=== PATIENT | male | born 1960 | race African-American/Black ===

== ENCOUNTER 2018-01-06 07:40 | Outpatient (CLI) | payer OTHER ==
--- NOTE | 2018-01-06 11:47 | PET ---
PET CT FROM SKULL BASE THROUGH MID THIGHS: INDICATION: History of left-sided lung cancer and Stage IV adenocarcinoma of the right lung with liver mets diagn osed in October 2017. RADIOPHARMACEUTICAL: 9.9 mCi F18-FDG IV was utilized. TECHNIQUE: PET CT images were obtained from the skull base through the mid thighs following administration of th e radiopharmaceutical. CT images were obtained for attenuation correction purposes only. Comparison made with prior PET CT dated 05/12/11. FINDINGS: Biodistribution: The biodistribution for the examination appears acceptable. Head/Neck: There is a mild amount of increased metabolic activity involving the parotid and submandibular glands . A mild amount of increased metabolic activity is seen along the right carotid, particularly in the region of the right carotid body, where the peak SUV uptake is 2.6. This is nonspecific but can be se en with atherosclerotic disease of the right carotid body. This may also be related to background act ivity within the blood pool. No hypermetabolic lymphadenopathy or mass is identified. Thorax: Prominent mass-like conglomeration of lymph nodes within the right paratracheal and right superior me diastinal region. The conglomeration of lymph nodes measures 7.5 cm with a peak SUV uptake of 8.22 an d a mean uptake of 7.6. There is a hypermetabolic enlarged subcarinal lymph node measuring 2.7 cm pea k SUV uptake of 8.6 and mean of 7.8. There is a large right perihilar right middle lobe mass measurin g approximately 9.8 cm with a peak SUV uptake of 7.8 and a mean uptake of 6.9. Abdomen/Pelvis: There is a hypermetabolic mass within the lateral left hepatic lobe measuring 3.8 cm with peak SUV up take of 8.0 and a mean uptake of 7.47. There are hypermetabolic portocaval lymph nodes, one measuring 1.5 cm and an additional measuring 2.6 cm. The largest portocaval lymph node has a maximum uptake of 11.5 and a mean uptake of 10.2. No additional hypermetabolic lymphadenopathy or mass is identified w ithin the abdomen or pelvis. Skin/Osseous Structures: No hypermetabolic skin or osseous lesion is evident. IMPRESSION: Abnormal PET CT: 1. There is evidence of either primary or metastatic disease within the right middle lobe. There is a large hypermetabolic right perihilar mass extending into the right middle lobe. There is malignant lymphadenopathy within the mediastinum. There is also malignant lymphadenopathy within the upper abdo men in the portocaval region. There is hypermetabolic metastatic disease to the left hepatic lobe. 2. Mild increased metabolic activity seen within the right carotid may reflect background activity w ithin the blood pool and mild atherosclerotic disease. No hypermetabolic lymphadenopathy is evident w ithin the head/neck region. There is no evidence of hypermetabolic osseous metastatic disease. POS: [facility]
== END 2018-01-06 07:41 | disposition home or self-care (01) ==
LOC: PET 07:40
PROVIDERS: ATTEND Internal Medicine Hematology & Oncology
DX: C34.01 Malignant neoplasm of right main bronchus (principal); C78.7 Secondary malignant neoplasm of liver and intrahepatic bile duct; R59.0 Localized enlarged lymph nodes
CPT/HCPCS: 78815; A9552

== ENCOUNTER 2018-11-03 12:33 | Day surgery (SDC) | payer OTHER ==
[2018-11-03 12:50] VITALS: BP 105/63; TEMP 97.4
[2018-11-03] MEDS: Pembrolizumab 200 MG in Sodium Chloride 0.9% 250 ML 250 ML IV SCH (13:02)
[2018-11-03] MEDS ORDERED: Sodium Chloride 0.9% 20 ML ONE (13:03)
== END 2018-11-03 13:38 | disposition home or self-care (01) ==
LOC: ONC/OP 12:33
PROVIDERS: ATTEND Internal Medicine Hematology & Oncology
DX: Z51.12 Encounter for antineoplastic immunotherapy (principal); C34.01 Malignant neoplasm of right main bronchus; C78.7 Secondary malignant neoplasm of liver and intrahepatic bile duct
CPT/HCPCS: 96413; J7050; J9271

== ENCOUNTER 2019-02-07 12:38 | Inpatient (IN) | payer OTHER ==
--- NOTE | 2019-02-07 13:16 | RAD ---
EXAM: Single view of the chest HISTORY: Hypoxia and dyspnea COMPARISON: 11/14/2018 FINDINGS: Single view of the chest shows a normal sized cardiomediastinal silhouette. Multifocal air space opacities are seen in the mid left lung and right lower lobe. Atherosclerotic calcification are seen in the aorta. The bones are unremarkable. IMPRESSION: Multifocal infiltrates
[2019-02-07 14:39] LABS: #Basophils 0.1 thou/uL (0.0-0.2); #Eosinphils 0.2 thou/uL (0.0-0.7); #Lymphocytes 1.7 thou/uL (1.20-3.40); #Monocytes 0.7 thou/uL (0.11-0.59); %Basophils 1.3 % (0.0-1.0); %Eosinophils 3.2 % (0.0-10.0); %Lymphocytes 30.4 % (21.0-51.0); %Monocytes 12.7 % (0.0-10.0); %Neutrophils 52.4 % (42.0-75.0); Hemoglobin 15.4 g/dL (14.0-18.0); Mean Corpuscular HGB CONC 32.1 g/dL (32.0-36.0); Mean Corpuscular Hemoglobin 31.2 pg (27.0-31.0); Mean Corpuscular Volume 97.1 fL (78.0-98.0); Mean Platelet Volume 8.1 fL (7.4-10.4); Platelet Count 191 thou/uL (130-400); RBC Distribution Width 15.4 % (11.5-14.5); Red Blood Cell (RBC) Count 4.94 mill/uL (4.70-6.10); White Blood Cell (WBC) Count 5.6 thou/uL (4.8-10.8)
[2019-02-07 15:03] LABS: ALT (SGPT) 15 U/L (8-55); AST (SGOT) 26 U/L (5-34); Albumin 3.5 g/dL (3.5-5.0); Alkaline Phosphatase 204 U/L (40-110); Anion Gap 12 mmol/L (10-20); BUN (Urea Nitrogen) 15 mg/dL (8.4-25.7); Bilirubin, Total 0.9 mg/dL (0.2-1.2); Calc. Creatinine Clearance 0 mL/min (70-130); Calcium 8.6 mg/dL (7.8-10.44); Carbon Dioxide 30 mmol/L (22-29); Chloride 104 mmol/L (98-107); Estimated GFR-MDRD 86; Globulin 3.5 g/dL (2.4-3.5); Glucose 75 mg/dL (70-105); Potassium 4.7 mmol/L (3.5-5.1); Sodium 141 mmol/L (136-145)
--- NOTE | 2019-02-07 15:33 | PDOC.FPRHP ---
- History of Present Illness Chief Complaint: hypoxia History of Present Illness: Patient is a 58M with PMHx of lung cancer, Oncologist: David - Allergies/Adverse Reactions Allergies Allergy/AdvReac Type Severity Reaction Status Date / Time No Known Allergies Allergy Unverified 11/03/18 08:31 - History PMHx: PSHx: FHx: Social: - Vital signs BP: 105/78 HR: 78 RR: 20 Tmax: 98.0 Pox: 96% on 4L nc Wt: 61 kg FMR H&P: Results - Labs Result Diagrams: 02/07/19 13:15 02/07/19 13:15 Lab results: WBC 5.6 thou/uL (4.8-10.8) 02/07/19 13:15 Hgb 15.4 g/dL (14.0-18.0) 02/07/19 13:15 Hct 48.0 % (42.0-52.0) 02/07/19 13:15 MCV 97.1 fL (78.0-98.0) 02/07/19 13:15 Plt Count 191 thou/uL (130-400) 02/07/19 13:15 Neutrophils % 52.4 % (42.0-75.0) 02/07/19 13:15 Sodium 141 mmol/L (136-145) 02/07/19 13:15 Potassium 4.7 mmol/L (3.5-5.1) 02/07/19 13:15 Chloride 104 mmol/L (98-107) 02/07/19 13:15 Carbon Dioxide 30 mmol/L (22-29) H 02/07/19 13:15 BUN 15 mg/dL (8.4-25.7) 02/07/19 13:15 Creatinine 1.07 mg/dL (0.7-1.3) 02/07/19 13:15 Glucose 75 mg/dL (70-105) 02/07/19 13:15 Calcium 8.6 mg/dL (7.8-10.44) 02/07/19 13:15 Total Bilirubin 0.9 mg/dL (0.2-1.2) 02/07/19 13:15 AST 26 U/L (5-34) 02/07/19 13:15 ALT 15 U/L (8-55) 02/07/19 13:15 Alkaline Phosphatase 204 U/L (40-110) H 02/07/19 13:15 B-Natriuretic Peptide 2082.0 pg/mL (0-100) H 02/07/19 14:32 Serum Total Protein 7.0 g/dL (6.0-8.3) 02/07/19 13:15 Albumin 3.5 g/dL (3.5-5.0) 02/07/19 13:15 FMR H&P: Upper Level - Plan Date/Time: 02/07/19 1532 Hernán Robbins, have evaluated this patient and agree with findings/plan as outlined by strategy intern resident. Pertinent changes/additions are listed here. This is a 58 yo male with a pmh significant for stage IV lung cancer Code: Prophylaxis: Family: Fluids: Diet Disposition: PCP: Dr. Adair
[2019-02-07] MEDS ORDERED: Aspirin Chewable 81 MG TAB ONE (15:35)
[2019-02-07] MEDS ORDERED: Furosemide 40 MG/4 ML VIAL ONE (15:35)
[2019-02-07] MEDS ORDERED: Ondansetron PF 4 MG/2 ML Vial IVP PRN (16:46)
[2019-02-07] MEDS ORDERED: Acetaminophen 325 MG TAB PO PRN (16:46)
[2019-02-07] MEDS ORDERED: Ondansetron ODT 4 MG TAB SL PRN (16:46)
[2019-02-07 18:10] LABS: Troponin I Less than 0.010 ng/mL (< 0.028)
[2019-02-07 19:07] LABS: Actual Bicarbonate (HCO3a) 30.3 mEq/L (22-28); Base Excess (BEa) 3.5 mEq/L (-2.0 to +3.0); CO2 Tension 54.9 mmHg (35.0-45.0); Calcium, Ionized 1.14 mmol/L (1.12-1.30); Carboxyhemoglobin (COHb) 2.7 gm% (0.0-3.0); Hemoglobin (Hb) 14.8 g/dL (14.0-18.0); Potassium - ABG Lab 3.76 mmol/L (3.70-5.30); pH, Arterial 7.36 (7.35-7.45)
[2019-02-07 19:09] LABS: O2 Tension (PaO2) 58.4 mmHg (80.0-100.0); Puncture Site LRA
[2019-02-07 19:10] LABS: ALV-art Gradient 101.135 (0-20)
[2019-02-07] MEDS: Furosemide 40 MG/4 ML VIAL SLOW IVP SCH (20:13)
[2019-02-08 05:41] LABS: Anion Gap 12 mmol/L (10-20); BUN (Urea Nitrogen) 17 mg/dL (8.4-25.7); Calc. Creatinine Clearance 65 mL/min (70-130); Calcium 8.9 mg/dL (7.8-10.44); Carbon Dioxide 33 mmol/L (22-29); Chloride 103 mmol/L (98-107); Estimated GFR-MDRD Greater than 90; Glucose 80 mg/dL (70-105); Potassium 4.2 mmol/L (3.5-5.1); Sodium 144 mmol/L (136-145)
[2019-02-08] MEDS: Furosemide 40 MG/4 ML VIAL SLOW IVP SCH ×3 (06:45→21:03)
--- NOTE | 2019-02-08 08:13 | HP ---
PRIMARY CARE PHYSICIAN: Dr. Adair. ONCOLOGIST: Dr. Hernandez. CHIEF COMPLAINT: Referral to ED from primary care physician's office for worsening shortness of breath and lower extremity edema times weeks. HISTORY OF PRESENT ILLNESS: This is a 58-year-old male with past medical history of lung cancer with prior chemotherapy and most recent radiation therapy 2 months ago with last PET scan 1 week ago unclear results; chronic hypoxic respiratory failure, recently setup for home oxygen 2 to 3 L approximately 2 to 3 weeks ago; prior AK without stenting; lower extremity stenting on DAPT; ongoing nicotine dependence, who presented to primary care physician's office for a 3-week history of worsening lower extremity edema, progressing into abdomen, associated with orthopnea and diminished functional status and recently setup for oxygen at home 2 to 3 L without any significant improvement, prompting primary care physician to call the patient's oncologist and seek ER evaluation. The patient denies any anginal complaints. He notes seeing his primary care physician several weeks ago with shortness of breath and being setup for oxygen. He has felt better with oxygen; however, notes worsening peripheral edema symptoms. He denies any recent sick contacts or illnesses. He states he had a recent PET scan done approximately 1 week ago and was told that his findings were good, but formal results are not available. In the emergency room, the patient had required 4 L of oxygen for appropriate saturation. He reports 10- to 12-pound weight gain recently. A 1-view chest x-ray revealed multifocal infiltrates in mid left lung and right lower lobe. The patient has no history of partial lobectomy. Laboratory values revealed a BNP of 2082. Most recent, January 17, 2019, transthoracic echocardiogram noted preserved LVEF with 60% to 65% with paradoxical septal movement, consistent with a right heart overload. The patient's EKG did not suggest any ischemic changes. He was administered 325 mg of oral aspirin and 40 mg IV Lasix, admitted for inpatient evaluation. At bedside, the patient notes minimal urine output thus far. He offers no other acute complaints. He corroborates aforementioned history. He denies any known history of congestive heart failure. He has previously seen a concrete mixer operator, but does not remember the concrete mixer operator's name. PAST MEDICAL HISTORY: Lung cancer diagnosed approximately 10 to 12 years ago regarding partial lobectomy, prior chemotherapy, and 8 cycles of radiation therapy, most recently 2 months ago with most recent PET scan 1 week ago, followed by oncologist Dr. Hernandez; nicotine dependence 1 pack every 3 days; chronic hypoxic respiratory failure, recently setup with home oxygen 2 to 3 L; AK; peripheral arterial stenting. PAST SURGICAL HISTORY: Partial lobectomy, chemo and radiation therapy for lung cancer, and lower extremity stenting. SOCIAL HISTORY: The patient admits to ongoing nicotine dependence, smoking 1 pack every 3 days. He denies any alcohol or illicit drug use. ALLERGIES: NONE REPORTED. REVIEW OF SYSTEMS: Pertinent positives per HPI. Remainder of review of systems otherwise negative. HOME MEDICATIONS: It will be reviewed as per admission medication reconciliation. FAMILY HISTORY: The patient notes mother and sister with congestive heart failure and his father had throat cancer. PHYSICAL EXAMINATION: VITAL SIGNS: In the ER, temperature 97.7, pulse 78, blood pressure 108/69, oxygen saturation 96% on 4 L oxygen via cannula, and respirations 16 to 20. GENERAL APPEARANCE: This is an elderly thin male, who is awake, alert, oriented , conversant, and little bit tachypneic. EYES: Pupils are equally round and reactive. Extraocular muscles are intact. No scleral icterus or conjunctival pallor. HENT: Normocephalic and atraumatic. There is frontal temporal wasting noted. Mucous membranes are moist. NECK: Supple. CARDIOVASCULAR SYSTEM: S1 and S2, regular rate and rhythm. There is audible heart murmur, JVD noted. LUNGS: Labored respirations noted, bilateral equal air entry posterior auscultation, scattered rhonchi and coarse breath sounds noted throughout bilateral posterior lung gonzalez. ABDOMEN: Soft, nontender, and nondistended. no peritoneal signs. EXTREMITIES: There is 3+ lower extremity pitting edema. No deformity or cyanosis noted. SKIN: Warm to touch without appreciable rashes or abrasion. GENITOURINARY: There is no scrotal edema appreciated. LABORATORY DATA: WBC 5.6, H&H 15 and 48. Sodium 141, potassium 4.7, chloride 104, bicarb 30, glucose 75, BUN and creatinine 15/1.07. AST 26, ALT 15, alk phos 204, albumin 3.5. Troponin I negative x2. IMAGIN-view chest x-ray on 02/07/2019 reveals multifocal infiltrates seen in the mid left lung and right lower lobe. Transthoracic echocardiogram in December 2018 reveals LVEF 60% to 65% with paradoxical septal movement with right heart overload. ASSESSMENT AND PLAN: 1. Acute on chronic hypoxic respiratory failure. Likely multifactorial etiology including congestive heart failure exacerbation and possibly attributed to lung cancer. The patient will be admitted to inpatient status and placed on telemetry monitoring. We will obtain arterial blood gas to evaluate for extent of hypoxemia and for any gradient. We will continue IV loop diuresis. We will obtain outpatient PET-CT scan results to evaluate for extent of malignancy. 2. Acute on chronic congestive heart failure exacerbation, likely secondary to right-sided heart failure. Recent December 2018 transthoracic echocardiogram with preserved LVEF and paradoxical septal movement with right heart overload. This may be contributed to the patient's known history of lung cancer. He recently underwent outpatient PET-CT scan with reported "good" results. We will need to obtain imaging results from oncologist's office. We will consult Cardiology for GDMT. We will continue IV Lasix 40 mg every 8 hours, monitor strict I's and O's, daily weighs, and maintain free water fluid restriction and institute cardiac diet. We will consult physical therapy for gait evaluation. We will monitor for appropriate oxygenation and his functional status. 3. Lung cancer. The patient has had prior lobectomy and chemotherapy and 8 cycles of radiation therapy, last reported 2 months ago. He follows with oncologist Dr. Hernandez. He reports last PET scan was approximately 1 week ago. We will attempt to obtain results of recent outpatient PET-CT scan and discussed with RN. He continues to smoke and has been advised complete nicotine cessation. 4. Nicotine dependence. The patient has been advised nicotine cessation. He denies any cravings of nicotine. We will start nicotine patch if cravings occur. 5. History of partial lobectomy secondary to lung cancer. 6. History of myocardial infarction and lower extremity stents. Continue dual antiplatelet therapy, statin, beta-vidhi, and nitrate therapy. Code status: Full code. Deep venous thrombosis prophylaxis LMWH Check a.m. labs on 02/08/2019. Disposition: The patient will be admitted to inpatient status and placed on telemetry monitoring. Anticipate greater than 3 midnights stay. Job ID: [id number] MTDD
[2019-02-08] MEDS: Aspirin 81 mg Enteric Coated Tablet PO SCH (08:48)
[2019-02-08] MEDS: Isosorbide Mononitrate (ER) 30 MG TAB PO SCH (08:48)
[2019-02-08] MEDS: Enoxaparin Sodium 40 MG/0.4 ML SYRINGE SC SCH (08:49)
[2019-02-08] MEDS: Atorvastatin Calcium 20 MG TAB PO SCH (08:49)
[2019-02-08] MEDS: Clopidogrel Bisulfate 75 MG TAB PO SCH (08:49)
[2019-02-08] MEDS: Carvedilol 25 MG TAB PO SCH ×2 (08:49→16:35)
[2019-02-08 12:27] VITALS: BMI 19.1
--- NOTE | 2019-02-08 13:29 | PDOC.HOSPP ---
- Subjective Encounter Date: 02/08/19 Encounter Time: 13:28 Subjective: patient seen and examined this afternoon. spouse and family at bedside. lower extremity edema improved. nonoliguric. denies chest pain.exertional dyspnea no better. nursing staff notes patient wants nebulizers restarted. still awaiting outpatient PET/CT report and request sent today. awaiting cardiology eval. - Objective Vital Signs & Weight: Vital Signs (12 hours) Temp Pulse Pulse Pulse Pulse Resp BP 02/08/19 12:00 97 F L 86 18 02/08/19 11:23 86 96 101/64 02/08/19 09:55 91 98 103/69 02/08/19 07:27 97.8 F 95 14 02/08/19 03:45 97.4 F L 85 18 BP BP Pulse Ox Pulse Ox Pulse Ox Pulse Ox 02/08/19 12:00 101/64 94 L 02/08/19 11:23 102/62 02/08/19 09:55 87 L 72 L 82 L 02/08/19 07:27 126/77 94 L 02/08/19 03:45 98/60 95 Weight Admit Weight 125 lb 7 oz Weight 129 lb 3.2 oz I&O: 02/07/19 02/08/19 02/09/19 06:59 06:59 06:59 Intake Total 200 Output Total 900 Balance -700 Result Diagrams: 02/07/19 13:15 02/08/19 04:33 Hospitalist ROS - Review of Systems Other: positive for dyspnea, lower extremity edema. pertinent positive persubjective; remainderROS negative. - Medication Medications: Active Medications Generic Name Dose Route Start Last Admin Trade Name Lucy PRN Reason Stop Dose Admin Aspirin 81 mg 02/08/19 09:00 02/08/19 08:48 Ecotrin PO 81 mg DAILY HADLEY Administration Atorvastatin Calcium 20 mg 02/08/19 09:00 02/08/19 08:49 Lipitor PO 20 mg DAILY HADLEY Administration Carvedilol 12.5 mg 02/08/19 08:00 02/08/19 08:49 Coreg PO 12.5 mg BID-WM HADLEY Administration Clopidogrel Bisulfate 75 mg 02/08/19 09:00 02/08/19 08:49 Plavix PO 75 mg DAILY HADLEY Administration Enoxaparin Sodium 40 mg 02/08/19 09:00 02/08/19 08:49 Lovenox SC 40 mg 0900 HADLEY Administration Furosemide 40 mg 02/07/19 20:00 02/08/19 12:54 Lasix SLOW IVP 40 mg 0400,1200,2000 HADLEY Administration Isosorbide Mononitrate 15 mg 02/08/19 09:00 02/08/19 08:48 Imdur Er PO 15 mg DAILY HADLEY Administration - Exam General Appearance: NAD, awake alert Eye: PERRL, anicteric sclera ENT: normocephalic atraumatic Neck: supple, JVD Heart: RRR, murmur present Respiratory: normal chest expansion, rhonchi, tachypneic Gastrointestinal: soft, non-tender, non-distended Extremities: 2+ LE edema Extremities - other findings: improving. Musculoskeletal: normal strength Musculoskeletal - other findings: frontotemporalwasting. thinningof musculature. Psychiatric: normal affect, normal behavior, A&O x 3 Hosp A/P - Plan acute on chronic respiratory failure with hypoxia. likely multifactorial including chf exacerbation, lungcancer, pulmonary hypertension. weanoxygen as tolerated. continue IVlasix, awaiting outpatientPET/CT, recent 12/2018 TTE noted , start neublized bronchodilators. ABG noted. will consider CTA chest for PEevaluation if no improvement. acute on chronic right sided CHF. continue IV lasix 40 mg q 8 hours, monitor electrolytes, monitor I&O wtih 1.5L fluid restriction.monitor blood pressures for preload dependence, await cardiology evaluation. await PT evaluation. 2018 TTE noted. await outpatient PET/CT to evaluate for malignancy and adenopathy contribution to pulmonary hypertension. lung cancer. s/p chemo and last xrt2 months ago. follows dr kapadia. await requested outpatient recent PET/CT nicotine dependence. cessation counseling atherosclerotic vascular disease. continue DAPT, statin, BB, nitrate DVT px: LMWH code status: full code check AM labs dispo: continue inpatient monitoring. will need to evaluate for improvement in hypoxemia.
[2019-02-08] MEDS ORDERED: Iopamidol-370 76% 500 ML 1 ML ONE (14:23)
--- NOTE | 2019-02-08 14:26 | CON ---
DATE OF CONSULTATION: REASON FOR CONSULTATION: Lower extremity edema and pleural effusion. PRIMARY GYRO COMPASS TESTER: None. HISTORY OF PRESENT ILLNESS: Mr. Aldana is 58-year-old gentleman with a history of metastatic lung cancer, who recently presented with lower extremity edema. This has been noted over the last several days to weeks. He is a very poor historian. He does have a history of metastatic lung cancer. He was diagnosed with moderate pulmonary hypertension 2 weeks ago after performing an echo. He also states he does not have a multisensor intelligence officer, but after speaking with Dr. Geneva Hernandez, it appears Dr. Cruz has been following Mr. Aldana in the past. He denies any chest pain or pressure. Mainly complaining of shortness of breath and lower extremity edema. PAST MEDICAL HISTORY: As above including a partial lobectomy, chemoradiation therapy for lung cancer. SOCIAL HISTORY: Positive tobacco use. ALLERGIES: NONE. REVIEW OF SYSTEMS: A 10-point review of systems is reviewed as above, otherwise negative. PHYSICAL EXAMINATION: GENERAL: Patient is a pleasant gentleman who is in no acute distress. He does appear older than stated age and thin. VITAL SIGNS: Blood pressure 101/64, pulse 86, and temperature 97. NEUROLOGIC: The patient is alert and oriented x3 with no focal neurologic deficits. HEENT: Sclerae without icterus. Mouth has moist mucous membranes with normal pallor. NECK: No JVD. Carotid upstroke brisk. No bruits bilaterally. LUNGS: Clear to auscultation with unlabored respirations. BACK: No scoliosis or kyphosis. CARDIAC: Regular rate and rhythm with normal S1 and S2. No S3 or S4 noted. No significant rubs, murmurs, thrills, or gallops noted throughout the precordium. PMI is not displaced. There is no parasternal heave. ABDOMEN: Soft, nontender, nondistended. No peritoneal signs present. No hepatosplenomegaly. No abnormal striae. EXTREMITIES: 2+ femoral and 2+ dorsalis pedis pulses. No cyanosis, clubbing. 2+ to 3+ pitting edema. SKIN: No gross abnormalities. PERTINENT LABORATORY DATA: Hemoglobin 15.4, hematocrit 48.0. Creatinine 0.99. BNP of 2082. Troponin negative. Echo with Doppler dated 01/17/2019 with LVEF of 60% to 65%. There is abnormal wall motion with paradoxical septal motion suggesting chronic right heart overload and severely enlarged right ventricle. He also appears to have moderate aortic insufficiency with PA pressure of 50 to 60 mmHg. Chest x-ray with multifocal infiltrates noted in the middle lung and right lung. IMPRESSION: 1. Lower extremity edema. 2. Shortness of breath. 3. Metastatic lung cancer. RECOMMENDATIONS: Mr. Aldana likely has group 5 pulmonary hypertension. This is likely multifactorial. His current lung status is unknown. He does have a history of tobacco abuse. Again, he also has metastatic lung cancer. He does have moderate aortic insufficiency that may be contributing to his shortness of breath and current lower extremity edema. 1. At this point, we recommend diuresis. 2. Recommend pulmonary consultation for further assessment of the patient's current lung status. 3. May consider calcium channel vidhi. 4. Cessation of all tobacco products. It appears Mr. Aldana's prognosis is poor. Further recommendation dictated by the patient's current clinical course. Job ID: [id number]
[2019-02-08 14:37] LABS: Anion Gap 14 mmol/L (10-20); BUN (Urea Nitrogen) 15 mg/dL (8.4-25.7); Calc. Creatinine Clearance 69 mL/min (70-130); Carbon Dioxide 31 mmol/L (22-29); Chloride 101 mmol/L (98-107); Estimated GFR-MDRD Greater than 90; Glucose 104 mg/dL (70-105); Potassium 3.8 mmol/L (3.5-5.1); Sodium 142 mmol/L (136-145)
--- NOTE | 2019-02-08 15:57 | CT ---
CTA Angio Chest W WO Con 02/08/2019 2:36 PM Indication: Suspected PTE with history of lung cancer Technique: Multiple CTA images were obtained of the thorax with IV contrast. 3-D rendering: MIP vianca nstructed images were created and reviewed. Comparison: CT PE dated November 07, [address] the chest dated December 17, 2015 Findings: Pulmonary arteries: No central or segmental pulmonary embolus is evident. Heart and Aorta: The heart is enlarged. There is pulmonary vascular congestion with scattered inters titial and airspace edema. Mediastinum:Large right hilar mass is decreased in size now measuring 6.0 x 3.8 cm were previously it measured 6.8 x 6.5 cm. Prominent right hilar and subcarinal lymphadenopathy appears less prominent than on the prior exam. Subcarinal lymph node now measures 1.6 cm were previously measured 1.9 cm. Lungs:The complete collapse of the lateral right middle lobe with interspersed internal densities evi ear similar appearing. There is surrounding bronchiectasis and subsegmental volume loss within the right middle lobe. There is scattered emphysema. There is interstitial and airspace opacities suspici ous for edema, right greater than left. Pleural space: There are small bilateral pleural effusions, right greater than left. Upper Abdomen: There is ascites within the upper abdomen. Osseous Structures: No acute osseous abnormality. Stable partial ostectomy of the left third through fifth ribs Soft tissues:No abnormality. Other findings:None. Impression: No central or segmental pulmonary embolus. Findings suggestive of moderate CHF Stable consolidation and areas of volume loss involving the right middle lobe with a partially calcif ied right middle lobe mass. Decrease in size of the mediastinal lymphadenopathy.
--- NOTE | 2019-02-08 16:36 | CON ---
DATE OF CONSULTATION: 02/08/2019 REASON FOR CONSULTATION: Shortness of breath. HISTORY OF PRESENT ILLNESS: This is a 58-year-old male, who presented to the hospital with a week history of increasing lower extremity edema and shortness of breath. He has a recent PET scan showing bilateral metastatic disease in the chest, which appears to be worsening compared to previous PET scan. On admission here, he was noted to have lower extremity edema. He also had a BNP value of 2082. An echo obtained last month showed right-sided elevated pulmonary pressures along with EF of 60% to 65%. He has been given Lasix and he says his leg swelling has gone down. Unfortunately, his shortness of breath has persisted. His past medical history of lung cancer, initially diagnosed back in 2011, treated by left upper lobectomy, partial chest wall resection. I am not sure whether or not he got chemo after that. He re-presented to the hospital in October 2017. At that time, I saw the patient and performed bronchoscopy, which found a right middle lobe pedunculated mass and the biopsy specimen demonstrated non-small cell cancer, favoring adenocarcinoma. He has been under Dr. Hernandez care since that time. PAST MEDICAL HISTORY: 1. Lung cancer. 2. Chronic hypoxic respiratory failure, requiring oxygen. 3. Peripheral arterial disease. PAST SURGICAL HISTORY: Left upper lobectomy and lower extremity stents. SOCIAL HISTORY: He smokes about 1 pack every 3 to 4 days. Does not consume alcohol. Does not use illicit drugs. ALLERGIES: NONE. REVIEW OF SYSTEMS: Denies weight loss, fever, chills, nausea, vomiting, hematemesis, melena, hematochezia, hematuria, or dysuria. MEDICATIONS: Prior to admission; 1. Carvedilol 12.5 mg b.i.d. 2. Aspirin 81 mg daily. 3. Atorvastatin 20 mg daily. 4. Isosorbide mononitrate 50 mg daily. 5. Plavix 75 mg daily. PHYSICAL EXAMINATION: VITAL SIGNS: Height 5 feet 9 inches, weight 129 pounds, and BMI 19.1. O2 saturation 97%, pulse 86, respirations 18, O2 saturation 94%, and blood pressure 101/64. GENERAL: He is a thin male, who is awake, alert, and in no visible distress. HEENT: Remarkable for muddy sclerae. Oropharynx clear. NECK: No adenopathy, JVD, or bruits. LUNGS: Coarse breath sounds and rhonchi heard bilaterally. CARDIAC: S1 and S2. Regular. 2/6 systolic murmur. ABDOMEN: Soft, nontender, and nondistended. EXTREMITIES: No clubbing or cyanosis. He has 2+ pitting edema from his knees downward. IMAGING: A recent PET scan was reviewed, he has extensive disease present in his right middle lobe area, he has mediastinal lymphadenopathy, particularly in the right hilar area. There is a hyperbolic mass within the liver. LABORATORY DATA: White blood cell count 5.6, hematocrit 48, and platelet count 191. A pH of 7.36, pCO2 of 54, and pO2 of 58. Sodium 144, potassium 4.2, chloride 103, CO2 of 33, BUN 17, creatinine 0.9, and glucose 80. BNP level is 2082. ASSESSMENT: 1. Metastatic lung cancer. 2. Increased dyspnea in the face of pulmonary hypertension, lung cancer, probable congestive heart failure. 3. Failure to thrive. PLAN: The patient is currently being diuresed and seems to have responded somewhat. I would go ahead and get a CT pulmonary angiogram to rule out the possibility of a pulmonary embolism. We will follow with you. Job ID: [id number]
[2019-02-09] MEDS: Furosemide 40 MG/4 ML VIAL SLOW IVP SCH (05:04)
[2019-02-09 07:27] VITALS: TEMP 97.6
[2019-02-09] MEDS ORDERED: Furosemide 40 MG/4 ML VIAL SLOW IVP SCH (08:30)
[2019-02-09] MEDS: Isosorbide Mononitrate (ER) 30 MG TAB PO SCH (09:05)
[2019-02-09] MEDS: Carvedilol 25 MG TAB PO SCH (09:06)
[2019-02-09] MEDS: Aspirin 81 mg Enteric Coated Tablet PO SCH (09:06)
[2019-02-09] MEDS: Clopidogrel Bisulfate 75 MG TAB PO SCH (09:06)
[2019-02-09] MEDS: Enoxaparin Sodium 40 MG/0.4 ML SYRINGE SC SCH (09:06)
[2019-02-09] MEDS: Atorvastatin Calcium 20 MG TAB PO SCH (09:06)
[2019-02-09 09:50] LABS: Anion Gap 12 mmol/L (10-20); BUN (Urea Nitrogen) 14 mg/dL (8.4-25.7); Calc. Creatinine Clearance 72 mL/min (70-130); Calcium 8.5 mg/dL (7.8-10.44); Carbon Dioxide 31 mmol/L (22-29); Chloride 101 mmol/L (98-107); Estimated GFR-MDRD Greater than 90; Glucose 107 mg/dL (70-105); Potassium 3.8 mmol/L (3.5-5.1); Sodium 140 mmol/L (136-145)
[2019-02-09 11:54] VITALS: BP 96/62
--- NOTE | 2019-02-09 15:27 | PRG ---
DATE OF SERVICE: 02/09/2019 SUBJECTIVE: Mr. Aldana is doing well. He has no complaints. CT angiogram did not show thromboembolic disease yesterday. He has calcified mass as noted in the past. He denies shortness of breath. He says he is being discharged home today. OBJECTIVE: LUNGS: Distant, clear. HEART: Regular rhythm. ABDOMEN: Soft. IMPRESSION: 1. Chronic hypoxic respiratory failure, on home oxygen. 2. Chronic obstructive pulmonary disease. 3. Lung cancer, non-small cell. 4. Peripheral vascular disease. 5. Tobacco use, ongoing. If he is discharged today, I will be happy to see him in followup in the office in a couple weeks. Job ID: [id number]
--- NOTE | 2019-02-09 17:12 | PRG ---
DATE OF SERVICE: 02/09/2019 SUBJECTIVE: Mr. Aldana is doing well. He feels much better today. He has a less swelling and less shortness of breath. OBJECTIVE: VITAL SIGNS: Blood pressure 106/60, pulse 97, and temperature afebrile. LUNGS: Clear to auscultation. HEART: Regular rate and rhythm. ABDOMEN: Soft, nontender, and nondistended. EXTREMITIES: 1+ to 2+ pitting edema. PERTINENT LABORATORY DATA: Hemoglobin 15.4. Creatinine 0.89. IMPRESSION: 1. Cor pulmonale. 2. Lower extremity edema. 3. Moderate aortic insufficiency. RECOMMENDATIONS: Mr. Aldana's main issue is likely pulmonary in origin. He has cor pulmonale with enlarged right ventricle and moderate pulmonary hypertension. He has COPD with underlying metastatic lung cancer. His moderate aortic insufficiency is likely contributing to his symptoms, but not felt to be a major contributor. At this point, I would continue current treatment. The patient will be discharged with close outpatient followup. Job ID: [id number]
--- NOTE | 2019-02-11 07:40 | PRG ---
NENA MCNAIR JR, SANDIP L. [id number] CLINICAL DOCUMENTATION CLARIFICATION FORM: POST DISCHARGE Addendum to original discharge summary date: ____ Late entry note date: __ DATE: 02/11/2019 ATTN:TESS ALVAREZ. Please exercise your independent, professional judgment in responding to the clarification form. Clinical indicators are provided on the bottom of this form for your review Please check appropriate box(s): Conflicting documentation was noted in the Medical Record, please clarify if patient is being treated/monitored for: [ ] Chronic hypoxic respiratory failure [ ] Acute on chronic respiratory failure with hypoxia [ ] Other diagnosis [ ] Unable to determine For continuity of documentation, please document condition throughout progress notes and discharge summary. Thank You. CLINICAL INDICATORS - SIGNS / SYMPTOMS/ LABS - Chronic hypoxic respiratory failure on home oxygen- Progress note, 02/09, Tate Butcher MD - Acute on chronic respiratory failure with hypoxia-Hospital PN,02/08, TESS ALVAREZ - Sat: 91L- Vital signs, 02/09 - Cor pulmonale with enlarged right ventricle and moderate pulmonary hypertension- Progress note, 02/09, Tate Butcher MD RISK FACTORS - Acute on chronic right sided CHF- Hospital PN,02/08, TESS ALVAREZ - Chronic obstructive pulmonary disease-Progress note, 02/09, Tate Butcher MD - Lung cancer, non-small cell- Progress note, 02/09, Tate Butcher MD TREATMENT - Nasal cannula- Vital Signs, 02/07 - DuoNeb 3ml-MAR, 02/08 r (This form is maintained as a part of the permanent medical record) 2014 [employer] All Rights Reserved Donavan Caruso [not provided] [not provided] [employer]
--- NOTE | 2019-02-15 08:08 | PQF ---
NENA MCNAIR JR, SANDIP L. [id number] CLINICAL DOCUMENTATION CLARIFICATION FORM: POST DISCHARGE Addendum to original discharge summary date: ____ Late entry note date: __ DATE: 02/11/2019 ATTN:TESS ALVAREZ. Please exercise your independent, professional judgment in responding to the clarification form. Clinical indicators are provided on the bottom of this form for your review Please check appropriate box(s): Conflicting documentation was noted in the Medical Record, please clarify if patient is being treated/monitored for: [ ] Chronic hypoxic respiratory failure [ ] Acute on chronic respiratory failure with hypoxia [ ] Other diagnosis [ ] Unable to determine For continuity of documentation, please document condition throughout progress notes and discharge summary. Thank You. CLINICAL INDICATORS - SIGNS / SYMPTOMS/ LABS - Chronic hypoxic respiratory failure on home oxygen- Progress note, 02/09, Tate Butcher MD - Acute on chronic respiratory failure with hypoxia-Hospital PN,02/08, TESS ALVAREZ - Sat: 91L- Vital signs, 02/09 - Cor pulmonale with enlarged right ventricle and moderate pulmonary hypertension- Progress note, 02/09, Tate Butcher MD RISK FACTORS - Acute on chronic right sided CHF- Hospital PN,02/08, TESS ALVAREZ - Chronic obstructive pulmonary disease-Progress note, 02/09, Tate Butcher MD - Lung cancer, non-small cell- Progress note, 02/09, Tate Butcher MD TREATMENT - Nasal cannula- Vital Signs, 02/07 - DuoNeb 3ml-MAR, 02/08 r (This form is maintained as a part of the permanent medical record) 2014 [employer]. All Rights Reserved Donavan Caruso [not provided] [not provided] [employer]
== END 2019-02-09 15:06 | disposition home or self-care (01) | DRG 291 ==
LOC: ERS 12:38 → 2SW 16:36 → OBSVTOIN 16:45 → 2NO 21:54
PROVIDERS: ADMIT Neuromusculoskeletal Medicine & OMM; ATTEND Neuromusculoskeletal Medicine & OMM
DX: I11.0 Hypertensive heart disease with heart failure (principal); J96.21 Acute and chronic respiratory failure with hypoxia; C34.90 Malignant neoplasm of unspecified part of unspecified bronchus or lung; I50.813 Acute on chronic right heart failure; R62.7 Adult failure to thrive; I73.9 Peripheral vascular disease, unspecified; I27.81 Cor pulmonale (chronic); J44.9 Chronic obstructive pulmonary disease, unspecified; F17.209 Nicotine dependence, unspecified, with unspecified nicotine-induced disorders; I27.20 Pulmonary hypertension, unspecified; I25.2 Old myocardial infarction
CPT/HCPCS: 36415; 71045; 71275; 80048; 80053; 82805; 83880; 84484; 85025; 93005; 93798; 94640; 96374; J1650; J1940; J7620; Q9967